=== PATIENT | male | born 1985 | race Caucasian/White ===

== ENCOUNTER 2018-06-21 22:36 | Inpatient (IN) | payer OTHER ==
--- NOTE | 2018-06-21 22:44 | ED Physician Documentation ---
General Adult - HISTORIAN Historian: patient - HPI Stated Complaint: abd pain Chief Complaint: General Adult Onset: days ago Timing: still present Severity: moderate Further Comments: yes (Pt is a 32 yo male who works for the [employer] who c/o abd pain. Pain began in his back, but now occurs also in his mid-stomach and across the abdomen. Pt has had some mild nausea. He is allergic to Zofran. Pt says he feels like he needs to have a bowel movement. No urinary sx. No fever. Pt is a daily drinker.) - ROS CONST: no problems EYES/ENT: none CVS/RESP: none GI/: abdominal pain, nausea, other (constipation) MS/SKIN/LYMPH: none - PAST HX Past History: none Allergies/Adverse Reactions: Allergies Allergy/AdvReac Type Severity Reaction Status Date / Time acetaminophen [From Tylenol] Allergy Intermediate Hives Verified 06/21/18 23:03 ondansetron [From Zofran] Allergy Intermediate Hives Verified 06/21/18 23:03 ibuprofen [From Motrin] AdvReac Intermediate Hives Verified 06/21/18 23:03 - SOCIAL HX Smoking History: non-smoker Alcohol Use: heavy - FAMILY HX Family History: No - REVIEWED ASSESSMENTS Nursing Assessment Reviewed: Yes Vitals Reviewed: Yes Progress - Progress Progress: CT abd/pelvis w IV contrast: An indeterminate 1 cm hypodense splenic lesion is present. Inflammation is observed in the pancreatic body and tail without evidence of pancreatic necrosis, abscess, vascular complication, or fluid collection. The lung bases, liver, adrenals, and kidneys are unremarkable. The gallbladder is partially contracted. Bile ducts are normal in caliber. Bowel loops exhibit normal caliber and wall thickness including a normal appendix. Pelvic sections reveal unremarkable urinary bladder, prostate, and seminal vesicles. Pelvic bowel loops are within normal limits. A small umbilical hernia contains omentum. Impression: 1. Acute uncomplicated pancreatitis. 2. Normal appendix. 3. Small umbilical hernia. 4. Indeterminate 1 cm splenic lesion, too small to characterize. NS 1 L x 2 Admit to ER doctor. General Adult Physical Exam - PHYSICAL EXAM GENERAL APPEARANCE: moderate distress EENT: pharynx normal NECK: normal inspection, supple RESPIRATORY: no resp distress, chest non-tender, breath sounds normal CVS: reg rate & rhythm, heart sounds normal, equal pulses ABDOMEN: tenderness (mid abd tenderness), decreased BS, guarding RECTAL: normal exam BACK: normal inspection, no CVA tenderness SKIN: warm/dry, normal color EXTREMITIES: non-tender, normal range of motion, no evidence of injury NEURO: oriented X3, motor nml, sensation nml Discharge Clincal Impression: Pancreatitis Qualifiers: Chronicity: acute Pancreatitis type: unspecified pancreatitis type Acute pancreatitis complication: no infection or necrosis Qualified Code(s): K85.90 - Acute pancreatitis without necrosis or infection, unspecified Referrals: Thony Patel MD [Primary Care Provider] - Condition: Stable Disposition: 09 ADMITTED INPATIENT Decision to Admit: [id number] Decision Time: 03:41
[2018-06-21] MEDS ORDERED: 0.9 % SODIUM CHLORIDE 1,000 ML IV ONE (22:52)
[2018-06-21 23:49] LABS: eGFR (Non-African) > 60
--- NOTE | 2018-06-22 00:11 | Diagnostic Imaging Report ---
SALLY GUTIÉRREZ [facility] [id number] [facility] [address] [address] Report Submission Date: Jun 21, 2018 11:19:41 PM CDT Patient Study Name: ASIA VALERIO Date: Jun 21, 2018 10:58:26 PM CDT Modality Type: DX Gender: M Description: ABDOMEN : 87 Institution: [facility] Physician: SALLY GUTIÉRREZ One view abdomen Clinical history: Severe upper abdominal pain for 4-5 hours. Constipation. Findings: Examination of the abdomen in single AP view demonstrates gas and stool in the colon. There is no evidence of obstruction. The lung bases are clear. There are no unusual intra-abdominal calcifications. Psoas margins are well defined and the properitoneal fat lines are preserved. Impression: 1. Negative study. Electronically signed on Jun 21, 2018 11:19:41 PM CDT by: Kyle DAY
[2018-06-22] MEDS ORDERED: 0.9 % SODIUM CHLORIDE 1,000 ML IV ONE ×3 (00:44→21:28)
[2018-06-22 01:43] LABS: BASO % 0.2 % (0.0-1.5); LYMPH ABS # 1.99 thou/uL (0.60-4.00); MCH. 30.6 pg (28.0-34.0); MCV 86.7 fL (80.0-100.0); MONOCYTE % 6.7 % (0.0-11.0); MONOCYTE ABS # 0.54 thou/uL (0.00-0.90); PLATELET COUNT 229 thou/uL (130-400)
[2018-06-22 03:31] LABS: LIPASE >3000 U/L (13-60)
[2018-06-22] MEDS ORDERED: HYDROmorphone HCL/PF 1 MG/ML DISP.SYRIN IVP PRN (03:57)
[2018-06-22] MEDS ORDERED: PROMETHAZINE HCL 25 MG in 0.9 % SODIUM CHLORIDE 50 ML IV PRN (03:57)
[2018-06-22] MEDS ORDERED: DEXTROSE 5 %-0.45 % SOD CHLORD 1,000 ML IV SCH (04:00)
[2018-06-22] MEDS ORDERED: HYDROmorphone HCL/PF 2 MG/ML DISP.SYRIN ONE (04:08)
--- NOTE | 2018-06-22 04:31 | Diagnostic Imaging Report ---
SALLY GUTIÉRREZ [facility] [id number] [facility] [address] [address] Report Submission Date: Jun 22, 2018 2:40:22 AM CDT Patient Study Name: ASIA VALERIO Date: Jun 22, 2018 2:22:09 AM CDT Modality Type: CT Gender: M Description: CT ABD PELVIS W/ CON : 87 Institution: [facility] Physician: SALLY GUTIÉRREZ Computed tomography abdomen pelvis with contrast History: Upper abdominal pain and decreased bowel sounds Findings: Transverse abdomen and pelvis sections are obtained after 96 mL intravenous Omnipaque 300. An indeterminate 1 cm hypodense splenic lesion is present. Inflammation is observed in the pancreatic body and tail without evidence of pancreatic necrosis, abscess, vascular complication, or fluid collection. The lung bases, liver, adrenals, and kidneys are unremarkable. The gallbladder is partially contracted. Bile ducts are normal in caliber. Bowel loops exhibit normal caliber and wall thickness including a normal appendix. Pelvic sections reveal unremarkable urinary bladder, prostate, and seminal vesicles. Pelvic bowel loops are within normal limits. A small umbilical hernia contains omentum. Impression: 1. Acute uncomplicated pancreatitis. 2. Normal appendix. 3. Small umbilical hernia. 4. Indeterminate 1 cm splenic lesion, too small to characterize. Electronically signed on Jun 22, 2018 2:40:22 AM CDT by: Ghanshyam DAY
[2018-06-22] MEDS ORDERED: DEXTROSE 5 %-0.45 % SOD CHLORD 1,000 ML IV ONE (04:34)
[2018-06-22 04:59] VITALS: BMI 25.7
[2018-06-22 06:36] LABS: APPEARANCE,URINE CLEAR (CLEAR); COLOR,URINE YELLOW (YELLOW); OCCULT BLOOD,URINE NEGATIVE (NEGATIVE); PH URINE 8.5 (5.0 - 8.0); UROBILINOGEN URINE 0.2 Eu (0.2-1.0)
--- NOTE | 2018-06-22 09:20 | History and Physical Report ---
History of Present Illnes - History of Present Illness Reason for Visit: abd pain History of Present Illness: 32yo white male who developed some mid abd pain and into back. Gradual start. Constant pain. No nausea noted. BM have been normal, no blood noted. NO previous problems noted. No previous history of pancreatitis. - Past Surgical History Past Surgical History: None - Past Family History Mother Family History: None Father Family History: None, CAD grandfather Family History: Cancer (pancreatic cancer), (76yo) - Past Social History Smoke: No (chews on rare occasion) Alcohol: Occassional (beer 1-4 a night) Drugs: None Lives: With Family Domestic Violence: Negative - Health Maintenance Health Maintenance: denies: Influenza Vaccine Influenza Vaccine: No Pneumonia Vaccine: No Resuscitation Status: Resusciation Status Resuscitation Status Full Code - Unable to Obtain History Unable to Obtain: No Review of Systems - Review of Systems Constitutional: Sweats. negative: Fever, Chills Eyes: negative: vision change ENT: negative: Ear Pain, Ear Discharge, Nose Congestion Respiratory: negative: Cough, Shortness of Breath, Hemoptysis, SOB with Excertion, Pleuritic Pain Cardiovascular: negative: Chest Pain, Palpitations, Edema, Light Headedness Gastrointestinal: Abdominal Pain (much improved). negative: Nausea, Vomiting, Constipation, Melena, Hematochezia Genitourinary: negative: Dysuria, Frequency, Incontinence, Hematuria Musculoskeletal: negative: Neck Pain, Shoulder Pain, Arm Pain, Back Pain Skin: negative: Rash Neurological: negative: Weakness, Numbness, Change in Speech - Medications/Allergies Allergies/Adverse Reactions: Allergies Allergy/AdvReac Type Severity Reaction Status Date / Time acetaminophen [From Tylenol] Allergy Intermediate Hives Verified 06/21/18 23:03 ondansetron [From Zofran] Allergy Intermediate Hives Verified 06/21/18 23:03 ibuprofen [From Motrin] AdvReac Intermediate Hives Verified 06/21/18 23:03 Current Inpatient Medications: Current Inpatient Medications Hydromorphone HCl (Dilaudid) 1 mg IVP Q4H PRN PRN Reason: PAIN Last Admin: 06/22/18 04:14 Dose: 1 mg DEXTROSE 5 %-0.45 % SOD CHLORD (D51/2ns) 1,000 mls @ 100 mls/hr IV Q10H CLAIRE Last Admin: 06/22/18 04:36 Dose: 100 mls/hr Promethazine HCl 25 mg/ Sodium (Chloride) 51 mls @ 600 mls/hr IV Q8H PRN PRN Reason: Nausea / Vomiting Stop: 06/27/18 03:56 Exam - Exam Vital Signs: Vital Signs (72 hours) 06/21/18 06/22/18 06/22/18 22:36 04:25 04:37 Temperature 97.6 F 99.2 F Pulse Rate [ 81 67 67 Pulse ox] Respiratory 18 15 15 Rate Blood Pressure 143/90 148/90 148/90 [Left Arm] O2 Sat by Pulse 98 98 98 Oximetry General: Alert, Oriented to Person, Oriented to Place, Oriented to Time, Cooperative HEENT: Atraumatic, PERRLA, EOMI, Mouth Mucous membr. moist/[place], Nose Mucous membr. moist/[place] Neck: Normal Range of Motion Lungs: Clear to auscultation, Normal air movement, Speaks full Sentences Cardiovascular: Regular rate, Normal S1, Normal S2, No murmurs Abdomen: Normal bowel sounds, Soft, No hepatospenomegaly, No masses, Other (tenderness to ther epigastric area, no gurding or rebound tenderness noted.) Integumentary: Normal, [place], Warm, Dry Extremities: No clubbing, No cyanosis, No edema, Normal pulses, No tenderness/swelling Neurological: Normal gait, Normal speech, Strength Equal Bilat, Normal tone, Sensation intact, Cranial nerves 3-12 NL, Reflexes 2+ Psych/Mental Status: Mental status NL, Mood NL, Appropriate Affect, Intact Judgment - Laboratory Results Laboratory Results: Laboratory Results 06/21/18 06/21/18 06/21/18 01:10 23:30 23:30 WBC Comment 8.05 RBC 5.32 Hemoglobin (Send Out) 16.3 Hct (Send Out) 46.1 MCV (Send Out) 86.7 MCH 30.6 MCHC (Send Out) 35.3 RDW Coeff of [place] 12.1 Plt Count 229 Absolute Lymphs (auto) 1.99 Absolute Monos (auto) 0.54 Absolute Basos (auto) 0.02 Neutrophils % 67.3 Absolute Neutrophils 5.42 Lymphocytes 24.7 Monocytes 6.7 Absolute Eosinophils 0.08 Basophilia % 0.2 Eosinophil Count 1.0 Sodium 133 L Potassium 3.6 Chloride 103 Carbon Dioxide 32 H BUN 18 Creatinine 1.00 Estimated Creat Clear 147 Est GFR ( Amer) > 60 Est GFR (Non-Af Amer) > 60 Glucose 91 Calcium 8.9 Total Bilirubin 0.9 AST 24 ALT 36 Alkaline Phosphatase 55 Total Protein 7.3 Albumin 4.3 Lipase Urine Color Yellow Urine Appearance Clear Urine pH 8.5 Ur Specific [place] 1.015 Urine Protein Negative Urine Ketones Negative Urine Occult Blood Negative Urine Nitrite Negative Urine Bilirubin Negative Urine Urobilinogen 0.2 Ur Leukocyte Esterase Negative Urine Glucose Negative 06/21/18 23:54 WBC Comment RBC Hemoglobin (Send Out) Hct (Send Out) MCV (Send Out) MCH MCHC (Send Out) RDW Coeff of [place] Plt Count Absolute Lymphs (auto) Absolute Monos (auto) Absolute Basos (auto) Neutrophils % Absolute Neutrophils Lymphocytes Monocytes Absolute Eosinophils Basophilia % Eosinophil Count Sodium Potassium Chloride Carbon Dioxide BUN Creatinine Estimated Creat Clear Est GFR ( Amer) Est GFR (Non-Af Amer) Glucose Calcium Total Bilirubin AST ALT Alkaline Phosphatase Total Protein Albumin Lipase >3000 H Urine Color Urine Appearance Urine pH Ur Specific [place] Urine Protein Urine Ketones Urine Occult Blood Urine Nitrite Urine Bilirubin Urine Urobilinogen Ur Leukocyte Esterase Urine Glucose Assessment/Plan - Assessment/Plan (1) Pancreatitis Status: Acute Current Visit: Yes Qualifiers: Chronicity: acute Pancreatitis type: alcohol induced Acute pancreatitis complication: no infection or necrosis Qualified Code(s): K85.20 - Alcohol induced acute pancreatitis without necrosis or infection Assessment: Patient seems to be doing much better at this time. Will support with IV fluids. Will monitor lipaxe and electrolytes. VTE Assessment - RISK FACTOR SCORE VTE RISK FACTOR SCORES: ANTICIPATED BED CONFINEMENT OR IMMOBILIZATION > 24 HOURS - RISK VTE LOW RISK: SCORE OF 1 OR LESS (RISK PROXIMAL DVT 0.4%) NO PROPHYLAXIS NEEDED
[2018-06-22] MEDS: 0.9 % SODIUM CHLORIDE 1,000 ML IV SCH ×2 (13:50→21:39)
[2018-06-22 14:57] LABS: eGFR (Non-African) > 60
[2018-06-22 15:51] LABS: BASO % 0.3 % (0.0-1.5); EOS % 1.7 % (0.0-6.8); LYMPH ABS # 1.68 thou/uL (0.60-4.00); MONOCYTE % 8.7 % (0.0-11.0); MONOCYTE ABS # 0.48 thou/uL (0.00-0.90); PLATELET COUNT 216 thou/uL (130-400)
[2018-06-22] MEDS ORDERED: MELATONIN 3 MG TABLET PO PRN (19:13)
[2018-06-22] MEDS ORDERED: MELATONIN 3 MG TABLET PO ONE (21:37)
[2018-06-23] MEDS ORDERED: 0.9 % SODIUM CHLORIDE 1,000 ML IV ONE (05:39)
[2018-06-23] MEDS: 0.9 % SODIUM CHLORIDE 1,000 ML IV SCH ×2 (06:08→13:03)
[2018-06-23 07:46] LABS: eGFR (Non-African) > 60
[2018-06-23 11:01] VITALS: BP 127/79
--- NOTE | 2018-06-23 13:00 | Discharge Summary ---
Discharge Summary - Discharge Sumary History of Present Illness: 32yo white male who developed some mid abd pain and into back on the night prior to admission. No precipitating factor noted. . Gradual start of pain. Constant pain. No nausea noted. BM have been normal, no blood noted. NO previous problems noted. No previous history of pancreatitis Patient states that he drinks several beers a night but has not had any for 3 days prior to admission. No history of hypertriglyceridemia. . Condition at Discharge: Stable Consultations this Visit: None Allergies/Adverse Reactions: Allergies Allergy/AdvReac Type Severity Reaction Status Date / Time acetaminophen [From Tylenol] Allergy Intermediate Hives Verified 06/21/18 23:03 ondansetron [From Zofran] Allergy Intermediate Hives Verified 06/21/18 23:03 ibuprofen [From Motrin] AdvReac Intermediate Hives Verified 06/21/18 23:03 Discharge Summary: Patient was place NPO. Patient was started on IV pain medications. Patient did not have any nausea vomiting during the hospitalization. Patient needed very little analgesic medication. Patient stated that within 12 hours of admission his pain was much improved. Patient was started on a clear liquid diet which was advanced to a regular diet without any increasing pain. Patient CBC remain stable. Liver enzymes remain stable. Patient slide patient did drop from greater than 3000 to 1692 . It was felt that the patient was able enough to be discharged home and followed up as an outpatient. At the time of dismissal patient lipid profile was pending. Patient was advised not to drink any further alcohol. - Final Diagnosis (1) Pancreatitis Problems: Resolving
== END 2018-06-23 13:45 | disposition home or self-care (01) | DRG 440 ==
LOC: ED 22:36 → SOUTH 06-22 04:21
PROVIDERS: ADMIT Emergency Medicine; ATTEND Family Medicine
DX: K85.90 Acute pancreatitis without necrosis or infection, unspecified (principal); F10.10 Alcohol abuse, uncomplicated
CPT/HCPCS: 74018; 74177; 80048; 80053; 80061; 81002; 83690; 85025; J1170; J7030; 96365; 96366; 96375; 99222; 99238; Q9967; S1016; S5010